=== PATIENT | female | born 1955 | race Two or more races ===

== ENCOUNTER 2025-08-04 13:15 | Inpatient (IN) | payer OTHER ==
[~2025-08-04] VITALS: Ht 157.5 cm; Wt 62.4 kg
[2025-08-04 15:42] VITALS: BP 138/66; PULSE 78; RESP 18; TEMP 98.8; O2SAT 96
[2025-08-04] MEDS ORDERED: DEXTROSE 50%-WATER 25 GM/50 ML SYRINGE IVP PRN (16:45)
[2025-08-04] MEDS ORDERED: LEVO75 PO (17:08)
[2025-08-04] MEDS ORDERED: METF-1211 PO (17:08)
[2025-08-04] MEDS ORDERED: LISI20TA24 PO (17:08)
[2025-08-04 19:20] LABS: GLUCOMETER DEV NAME(LOC) 2WR.2C; GLUCOSE,POINT OF CARE 122 MG/DL (70-110)
[2025-08-04 20:00] VITALS: BP 137/62; PULSE 76; RESP 18; TEMP 98.2; O2SAT 96
[2025-08-04] MEDS: ETHYL ALCOHOL 62% ANTISEPTIC NASAL SANITIZER 0.6 ML AMPUL NASAL SCH (21:00)
[2025-08-04] MEDS: DOCUSATE SODIUM 100 MG CAPSULE PO SCH (21:00)
[2025-08-04] MEDS: ATORVASTATIN CALCIUM 40 MG TABLET PO SCH (21:12)
[2025-08-04] MEDS: INSULIN LISPRO 100 UNITS/ML SQ PRN (21:24)
[2025-08-04 23:56] LABS: GLUCOMETER DEV NAME(LOC) 2WR.2C; GLUCOSE,POINT OF CARE 178 MG/DL (70-110)
[2025-08-05] MEDS: LEVOTHYROXINE SODIUM 112 MCG TABLET PO SCH (06:19)
[2025-08-05 07:21] LABS: GLUCOMETER DEV NAME(LOC) 2WR.1D; GLUCOSE,POINT OF CARE 111 MG/DL (70-110)
[2025-08-05 07:30] LABS: PLATELET COUNT (AUTO) 206 K/uL (150-450); RED BLOOD CELL COUNT(AUTO) 4.45 MIL/uL (4.00-5.20); RED CELL DISTRIBUTION WIDTH 13.7 % (11.5-14.5); WHITE BLOOD COUNT (AUTO) 6.9 K/uL (4.5-11.0)
[2025-08-05 07:44] LABS: ASPARTATE AMINOTRANSFERASE 25 U/L (15-37); CALCIUM, TOTAL 8.6 mg/dL (8.8-10.5); CREATININE 0.60 mg/dL (0.60-1.30); GLOMERULAR FILTR. RATE CALC > 60 mL/min (>60); GLUCOSE,RANDOM 113 mg/dL (70-110); SODIUM SERUM 140 mmol/L (136-145); TOTAL PROTEIN, SERUM 7.3 g/dL (6.4-8.2); UREA NITROGEN, BLOOD 19 mg/dL (7-18)
[2025-08-05 08:00] VITALS: BP 128/64; PULSE 60; RESP 18; TEMP 98.4; O2SAT 98
[2025-08-05] MEDS: ASPIRIN 81 MG CHEWABLE TABLET PO SCH (08:15)
[2025-08-05] MEDS: ENOXAPARIN SODIUM 40 MG/0.4 ML PF SYRINGE SQ SCH (08:15)
[2025-08-05] MEDS: EMPAGLIFLOZIN 25 MG TABLET PO SCH (08:16)
[2025-08-05 13:25] LABS: GLUCOMETER DEV NAME(LOC) 2WR.1D; GLUCOSE,POINT OF CARE 103 MG/DL (70-110)
[2025-08-05 18:45] LABS: GLUCOMETER DEV NAME(LOC) 2WR.1D; GLUCOSE,POINT OF CARE 127 MG/DL (70-110)
[2025-08-05 20:00] VITALS: BP 130/70; PULSE 68; RESP 18; TEMP 98.1; O2SAT 97
[2025-08-05 20:15] VITALS: BP 133/65; PULSE 67; RESP 18; TEMP 98.1; O2SAT 99
[2025-08-05 23:11] LABS: GLUCOMETER DEV NAME(LOC) 2WR.2C; GLUCOSE,POINT OF CARE 180 MG/DL (70-110)
[2025-08-06 08:00] VITALS: BP 136/62; PULSE 61; RESP 18; TEMP 98.1; O2SAT 97
[2025-08-06 11:00] VITALS: BP 146/78; PULSE 82; RESP 18; O2SAT 96
[2025-08-06 12:05] LABS: GLUCOMETER DEV NAME(LOC) 2WR.2C; GLUCOSE,POINT OF CARE 115 MG/DL (70-110)
[2025-08-06 12:05] LABS: GLUCOMETER DEV NAME(LOC) 2WR.1D; GLUCOSE,POINT OF CARE 159 MG/DL (70-110)
[2025-08-06] MEDS: FAMOTIDINE 20 MG TABLET PO SCH (13:22)
[2025-08-06 17:20] LABS: GLUCOMETER DEV NAME(LOC) 2WR.2C; GLUCOSE,POINT OF CARE 111 MG/DL (70-110)
[2025-08-06 20:02] VITALS: BP 156/74; PULSE 72; RESP 18; TEMP 97.9; O2SAT 98
[2025-08-06 21:01] VITALS: O2SAT 98
[2025-08-06 21:06] LABS: GLUCOMETER DEV NAME(LOC) 2WR.2C; GLUCOSE,POINT OF CARE 138 MG/DL (70-110)
[2025-08-07 03:25] VITALS: BP 153/67; PULSE 72
[2025-08-07 06:36] LABS: GLUCOMETER DEV NAME(LOC) 2WR.1D; GLUCOSE,POINT OF CARE 100 MG/DL (70-110)
[2025-08-07 08:00] VITALS: BP 133/76; PULSE 65; RESP 19; TEMP 97.8; O2SAT 97
[2025-08-07 12:46] LABS: GLUCOMETER DEV NAME(LOC) 2WR.1D; GLUCOSE,POINT OF CARE 100 MG/DL (70-110)
[2025-08-07 19:55] LABS: GLUCOMETER DEV NAME(LOC) 2WR.2C; GLUCOSE,POINT OF CARE 116 MG/DL (70-110)
[2025-08-07 20:00] VITALS: BP 136/64; PULSE 59; RESP 19; TEMP 97.8; O2SAT 99
[2025-08-07 21:19] VITALS: O2SAT 98
[2025-08-07 21:50] LABS: GLUCOMETER DEV NAME(LOC) 2WR.1D; GLUCOSE,POINT OF CARE 111 MG/DL (70-110)
[2025-08-08 07:01] LABS: GLUCOMETER DEV NAME(LOC) 2WR.2C; GLUCOSE,POINT OF CARE 101 MG/DL (70-110)
[2025-08-08 08:01] VITALS: BP 122/58; PULSE 60; RESP 19; TEMP 98.1; O2SAT 95
[2025-08-08 12:06] LABS: GLUCOMETER DEV NAME(LOC) 2WR.2C; GLUCOSE,POINT OF CARE 161 MG/DL (70-110)
[2025-08-08 17:50] LABS: GLUCOMETER DEV NAME(LOC) 2WR.2C; GLUCOSE,POINT OF CARE 96 MG/DL (70-110)
[2025-08-08 20:00] VITALS: BP 141/74; PULSE 68; RESP 18; TEMP 98.4; O2SAT 97
[2025-08-08 22:21] LABS: GLUCOMETER DEV NAME(LOC) 2WR.1D; GLUCOSE,POINT OF CARE 124 MG/DL (70-110)
[2025-08-09 07:06] LABS: GLUCOMETER DEV NAME(LOC) 2WR.2C; GLUCOSE,POINT OF CARE 93 MG/DL (70-110)
[2025-08-09 08:00] VITALS: BP 137/70; PULSE 78; RESP 18; TEMP 98.2; O2SAT 98
[2025-08-09] MEDS: ONDANSETRON 4 MG TABLET PO PRN (14:33)
[2025-08-09] MEDS ORDERED: DOCUSATE SODIUM 100 MG CAPSULE PO PRN (18:45)
[2025-08-09 20:19] VITALS: BP 133/66; PULSE 67; RESP 18; TEMP 98.4; O2SAT 97
[2025-08-10 06:44] VITALS: BP 133/67; PULSE 62; RESP 18; TEMP 98.2; O2SAT 96
[2025-08-10 07:30] VITALS: BP 127/64; PULSE 65; RESP 19; TEMP 98.4; O2SAT 99
[2025-08-10 08:20] LABS: GLUCOMETER DEV NAME(LOC) 2WR.2C; GLUCOSE,POINT OF CARE 103 MG/DL (70-110)
[2025-08-10 08:30] VITALS: PULSE 68; O2SAT 99
[2025-08-10] MEDS: MECLIZINE HCL 12.5 MG TABLET PO PRN (13:09)
[2025-08-10 20:00] VITALS: BP 131/56; PULSE 70; RESP 18; TEMP 98.1; O2SAT 100
[2025-08-11 07:46] LABS: GLUCOMETER DEV NAME(LOC) 2WR.1D; GLUCOSE,POINT OF CARE 93 MG/DL (70-110)
[2025-08-11 08:00] VITALS: BP 116/65; PULSE 64; RESP 18; TEMP 98.2; O2SAT 97
[2025-08-11 22:09] VITALS: BP 136/63; PULSE 86; RESP 18; TEMP 98.1; O2SAT 97
[2025-08-12 07:10] LABS: GLUCOMETER DEV NAME(LOC) 2WR.2C; GLUCOSE,POINT OF CARE 82 MG/DL (70-110)
[2025-08-12 08:00] VITALS: BP 150/78; PULSE 78; RESP 17; TEMP 97.9; O2SAT 98
[2025-08-12 20:00] VITALS: BP 112/63; PULSE 68; RESP 19; TEMP 98; O2SAT 97; O2SAT 98
[2025-08-13 07:50] LABS: GLUCOMETER DEV NAME(LOC) 2WR.2C; GLUCOSE,POINT OF CARE 99 MG/DL (70-110)
[2025-08-13 08:00] VITALS: BP 139/77; PULSE 68; RESP 17; TEMP 98.6; O2SAT 97
[2025-08-13 20:00] VITALS: BP 123/63; PULSE 66; RESP 18; TEMP 98.4; O2SAT 97
[2025-08-13 22:12] VITALS: O2SAT 97
[2025-08-13] MEDS ORDERED: ATOR40TA28 PO (23:48)
[2025-08-13] MEDS ORDERED: AMLO-258 PO (23:48)
[2025-08-13] MEDS ORDERED: FAMO20 PO (23:48)
[2025-08-13] MEDS ORDERED: LEVO112T4 PO (23:48)
[2025-08-13] MEDS ORDERED: EMPA25TA3 PO (23:48)
[2025-08-13] MEDS ORDERED: ASPI-1450 PO (23:48)
[2025-08-14 06:40] LABS: GLUCOMETER DEV NAME(LOC) 2WR.1D; GLUCOSE,POINT OF CARE 91 MG/DL (70-110)
[2025-08-14 08:00] VITALS: BP 134/63; PULSE 74; RESP 18; TEMP 98.8; O2SAT 99
[2025-08-14 20:00] VITALS: BP 139/67; PULSE 73; RESP 18; TEMP 98.2; O2SAT 96
[2025-08-15 07:06] LABS: GLUCOMETER DEV NAME(LOC) 2WR.1D; GLUCOSE,POINT OF CARE 79 MG/DL (70-110)
[2025-08-15 08:00] VITALS: BP 125/62; PULSE 74; RESP 17; TEMP 97.9; O2SAT 97
[2025-08-15] MEDS ORDERED: INSU100V SQ (09:41)
[2025-08-15] MEDS ORDERED: DOCU-385 PO (09:41)
[2025-08-15] MEDS ORDERED: ATOR40TA71 PO (09:41)
[2025-08-15] MEDS ORDERED: EMPA25TA3 PO (09:41)
[2025-08-15] MEDS ORDERED: METF-1211 PO (09:41)
[2025-08-15] MEDS ORDERED: ASPI-1450 PO (09:41)
[2025-08-15] MEDS ORDERED: AMLO-258 PO (09:41)
[2025-08-15] MEDS ORDERED: FAMO20 PO (09:41)
[2025-08-15] MEDS ORDERED: LEVO112T7 PO (09:41)
[2025-08-15] MEDS ORDERED: LISI-894 PO (09:41)
== END 2025-08-15 13:36 | disposition home health service (06) | DRG 57 ==
LOC: 2WR 16:25
PROVIDERS: ADMIT Physical Medicine & Rehabilitation; ATTEND Physical Medicine & Rehabilitation
DX: I69.351 Hemiplegia and hemiparesis following cerebral infarction affecting right dominant side (principal); I10 Essential (primary) hypertension; E03.9 Hypothyroidism, unspecified; E11.65 Type 2 diabetes mellitus with hyperglycemia; E78.5 Hyperlipidemia, unspecified; Z74.09 Other reduced mobility; R13.10 Dysphagia, unspecified; R47.1 Dysarthria and anarthria; R41.89 Other symptoms and signs involving cognitive functions and awareness; R13.12 Dysphagia, oropharyngeal phase; R53.1 Weakness; Z79.899 Other long term (current) drug therapy; Z79.84 Long term (current) use of oral hypoglycemic drugs; Z79.82 Long term (current) use of aspirin
CPT/HCPCS: 80053; 82962; 85025; 87081; 92507; 92526; 92610; 93970; 97032; 97112; 97116; 97163; 97167; 97530; 97535; 99366; J1650; Q0162